=== PATIENT | male | born 1970 | race Caucasian/White ===

== ENCOUNTER 2019-10-17 13:22 | Emergency (ER) | payer BC ==
[~2019-10-17] VITALS: Ht 172.7 cm; Wt 72.7 kg
[2019-10-17] MEDS ORDERED: IV NORMAL SALINE 1,000ML 1,000 ML IV ONE (13:45)
--- NOTE | 2019-10-17 13:46 | PHYS DOC ---
General Adult EDM: Chief Complaint: DIZZY/LIGHT HEADED HPI: HPI: 49-year-old male significant history of hypertension, who presents for evaluation of dizziness of onset at around 9 AM this morning. Symptoms worsened around noon today, associated with diaphoresis and feeling generally unwell. No headache, vision changes, chest pain, dyspnea, palpitations, abdominal pain. Does endorse mild nausea, though now improved. Review of Systems: Review of Systems: Gen: No fever, chills. Reports diaphoresis. Eyes: No blurred vision, diplopia. ENT: No nasal congestion, sore throat. CV: No CP, palpitations. Resp. No SOB, cough. GI: No abd pain, vomiting. Reports nausea. : No dysuria, hematuria. Neuro: No ROCK, weakness. Reports lightheadedness. MSK: No myalgia, arthralgia, back pain. Skin: No acute rash or lesion. Heart Score: Risk Factors: Risk Factors: DM, Current or recent (<one month) smoker, HTN, HLP, family history of CAD, obesity. Risk Scores: Score 0 - 3: 2.5% MACE over next 6 weeks - Discharge Home Score 4 - 6: 20.3% MACE over next 6 weeks - Admit for Clinical Observation Score 7 - 10: 72.7% MACE over next 6 weeks - Early Invasive Strategies Physical Exam: PE: Gen: NAD. Well nourished. Head: NC/AT. Eyes: No scleral icterus. No conjunctival injection. PERRL. No inducible nystagmus. ENT: MMM. Posterior OP clear. Neck: Supple. NT. No JVD. CV: RRR. Peripheral pulses intact. Resp: CTAB. Abd: Soft. NT. ND. MSK: No peripheral cyanosis. No edema. Neuro: A&Ox3. Strength & sensation grossly intact throughout. No dysmetria. No aphasia or dysarthria. No facial asymmetry. No visual field cut. NIH stroke score 0. Skin. Warm. Dry. Psych: Appropriate mood & affect. EKG: EKG: EKG at 1347. Sinus rhythm. Heart rate 92. Normal intervals. No STEMI. Interpreted by me. Radiology/Procedures: Radiology/Procedures: EXAM: CHEST AP ONLY INDICATION: Reason: Dizziness / Spl. Instructions: / History: . TECHNIQUE: Single view COMPARISON: None FINDINGS: The heart size is normal. The great vessels appear unremarkable. There is no hilar or mediastinal mass. Lungs are hypoventilatory but show no focal infiltrates. Bilateral diaphragmatic elevation is present. There is no pleural effusion or pneumothorax. There are no significant osseous abnormalities. IMPRESSION: Hypoventilatory chest showing no active cardiopulmonary disease. Electronically signed by: Doretha Rg MD (10/17/2019 2:11 PM) [place] EXAM: 1. CTA HEAD WITH AND WITHOUT CONTRAST. 2. CTA NECK WITH AND WITHOUT CONTRAST. HISTORY: Dizziness, vertigo. TECHNIQUE: Computed tomographic angiography of the head and neck was performed before and after the intravenous administration of iodinated contrast. Three-dimensional reconstructions were also performed. One or more of the following individualized dose reduction techniques were utilized for this examination: 1. Automated exposure control. 2. Adjustment of the mA and/or kV according to patient size. 3. Use of iterative reconstruction technique. COMPARISON: Today's head CT. FINDINGS: Angiographic findings: There is a common origin of the left common carotid and brachiocephalic arteries, a variant of normal. There is no arch vessel stenosis. Both common carotid arteries are patent without stenosis. Both internal carotid arteries are patent without stenosis. The external carotid systems are patent. There are circumferential atherosclerotic calcifications along the distal vertebral arteries at the foramen magnum bilaterally. These result in only mild luminal narrowing. Both contribute to the basilar. There are limitations from venous contamination. The basilar artery is patent. Both posterior cerebral arteries are patent. The posterior communicating arteries are visualized. There are minimal atherosclerotic calcifications along the cavernous internal carotid arteries without significant stenosis. The middle cerebral arteries are patent. The anterior cerebral arteries are patent. The anterior communicating artery is visualized. Nonangiographic findings: There is no intracranial hemorrhage. Colon-white differentiation is preserved. The ventricles are normal in size and position. There is a small mucus retention cyst in the left maxillary sinus. The orbits are unremarkable. The temporal bones are unremarkable. Bone windows reveal no suspicious lesions. The lung apices demonstrate no acute abnormality. The parotid glands and submandibular glands are unremarkable. The thyroid gland demonstrates no suspicious lesions. There are no laryngeal or pharyngeal masses. There are no pathologically enlarged lymph nodes. IMPRESSION: 1. Moderate atherosclerotic calcifications along the distal vertebral arteries resulting in only mild luminal narrowing. 2. No hemodynamically significant carotid or intracranial stenosis. PQRS Compliance Statement - Stenosis calculations for CT, MR and conventional angiography are based upon measurement of the distal ICA diameter in accordance with the NASCET methodology. Stenosis calculations for carotid ultrasound studies are derived from validated velocity criteria which are known to correlate with the NASCET methodology. Electronically signed by: William Marquez MD (10/17/2019 3:23 PM) [id number] Course & Med Decision Making: Course & Med Decision Making Pertinent Labs and Imaging studies reviewed. (See chart for details) In summary, 49M p/w vertigo and diaphoresis that began this morning. HDS. No focal neuro deficits. No inducible nystagmus. NIHSS zero. EKG without acute injury pattern. Labs unremarkable including negative initial troponin. CXR c lear. CTAH/CTAN and delta troponin pending. Given IVF and meclizine. 1544: CTAH/CTAN neg for acute occlusion or dissection, specifically of the verts. Delta trop neg. Dizziness improved. HINTS exam reassuring. Will DC home with Rx meclizine. Outpatient PMD F/U. Return precautions given. Eliana Disclaimer: Eliana Disclaimer: This electronic medical record was generated, in whole or in part, using a voice recognition dictation system. Departure Departure: Impression: Primary Impression: Dizziness Disposition: 01 HOME/RESIDENCE PRIOR TO ADM Condition: STABLE Referrals: LAKEISHA WALSH (PCP) Patient Instructions: Dizziness, [id number] Scripts Meclizine Hcl (MECLIZINE HCL) 25 Mg Tablet 1 TAB PO PRN TID for Dizziness, #20 TAB Prov: MIGUELINA SUMMERS DO 10/17/19 Justification of Admission: Justification of Admission: Justification of Admission Dx: N/A MIGUELINA SUMMERS DO Oct 17, 2019 13:46
[2019-10-17 13:53] VITALS: BP 131/93
[2019-10-17 14:00] LABS: BASO # 0.1 x10^3/uL (0.0-0.2); BASO % 1 % (0-3); EOS # 0.1 x10^3/uL (0.0-0.7); EOS % 1 % (0-3); HEMATOCRIT 44.4 % (39.0-53.0); HEMOGLOBIN 14.6 g/dL (13.0-17.5); LYMPH # 2.9 x10^3/uL (1.0-4.8); LYMPH % 33 % (24-48); MEAN CORPUSCULAR HEMOGLOBIN 28 pg (25-35); MEAN CORPUSCULAR HGB CONC 33 g/dL (31-37); MEAN CORPUSCULAR VOLUME 85 fL (79-100); MONO # 0.5 x10^3/uL (0.0-1.1); MONO % 5 % (0-9); NEUT # 5.3 x10^3uL (1.8-7.7); NEUT % 60 % (31-73); PLATELET COUNT 262 x10^3/uL (140-400); RED BLOOD COUNT 5.19 x10^6/uL (4.30-5.70); RED CELL DISTRIBUTION WIDTH 14.2 % (11.5-14.5); WHITE BLOOD COUNT 8.8 x10^3/uL (4.0-11.0)
[2019-10-17 14:07] LABS: CALCIUM 10.4 mg/dL (8.5-10.1); CREATININE 1.2 mg/dL (0.7-1.3); GFR 63.8; POTASSIUM 3.9 mmol/L (3.5-5.1)
--- NOTE | 2019-10-17 14:08 | EKG ---
[address] [address] Test Date: 2019-10-17 Test Time: 13:47:39 Pat Name: AKI BOGGS Department: Room: Gender: M [employer] Founder: : 1970 Requested By: MIGUELINA SUMMERS Order Number: [id number] Reading MD: Measurements Intervals [place] Rate: 92 P: 32 OR: 146 QRS: 26 QRSD: 82 T: 52 QT: 318 QTc: 398 Interpretive Statements SINUS RHYTHM NORMAL ECG RI6.02 No previous ECG available for comparison
[2019-10-17 14:13] LABS: ALBUMIN 4.5 g/dL (3.4-5.0); ALBUMIN/GLOBULIN RATIO 1.3 (1.0-1.7); MAGNESIUM 2.1 mg/dL (1.8-2.4); TOTAL BILIRUBIN 0.2 mg/dL (0.2-1.0); TOTAL PROTEIN 7.9 g/dL (6.4-8.2)
--- NOTE | 2019-10-17 14:15 | RAD ---
EXAM: CHEST AP ONLY INDICATION: Reason: Dizziness / Spl. Instructions: / History: . TECHNIQUE: Single view COMPARISON: None FINDINGS: The heart size is normal. The great vessels appear unremarkable. There is no hilar or mediastinal mass. Lungs are hypoventilatory but show no focal infiltrates. Bilateral diaphragmatic elevation is present. There is no pleural effusion or pneumothorax. There are no significant osseous abnormalities. IMPRESSION: Hypoventilatory chest showing no active cardiopulmonary disease. Electronically signed by: Doretha Rg MD (10/17/2019 2:11 PM) [facility] – [place], [place]
[2019-10-17] MEDS ORDERED: IOHEXOL 350 MG/ML 100 ML VIAL. IV ONE (14:30)
[2019-10-17] MEDS ORDERED: MECLIZINE 12.5 MG TABLET. PO ONE (14:30)
--- NOTE | 2019-10-17 14:58 | RAD ---
EXAM: CT HEAD WITHOUT CONTRAST. HISTORY: Dizziness. TECHNIQUE: Computed tomography of the head was performed without intravenous contrast. One or more of the following individualized dose reduction techniques were utilized for this examination: 1. Automated exposure control. 2. Adjustment of the mA and/or kV according to patient size. 3. Use of iterative reconstruction technique. COMPARISON: None. FINDINGS: There is no intracranial hemorrhage. Colon-white differentiation is preserved. The ventricles are normal in size and position. The visualized paranasal sinuses appear clear. The orbits are unremarkable. The temporal bones are unremarkable. The calvarium reveals no suspicious lesions. There are atherosclerotic calcifications of the internal carotid and vertebral arteries. IMPRESSION: 1. No acute intracranial findings. MRI is more sensitive for acute ischemia if there is persistent concern. Electronically signed by: William Marquez MD (10/17/2019 2:55 PM) [id number]
--- NOTE | 2019-10-17 15:26 | RAD ---
EXAM: 1. CTA HEAD WITH AND WITHOUT CONTRAST. 2. CTA NECK WITH AND WITHOUT CONTRAST. HISTORY: Dizziness, vertigo. TECHNIQUE: Computed tomographic angiography of the head and neck was performed before and after the intravenous administration of iodinated contrast. Three-dimensional reconstructions were also performed. One or more of the following individualized dose reduction techniques were utilized for this examination: 1. Automated exposure control. 2. Adjustment of the mA and/or kV according to patient size. 3. Use of iterative reconstruction technique. COMPARISON: Today's head CT. FINDINGS: Angiographic findings: There is a common origin of the left common carotid and brachiocephalic arteries, a variant of normal. There is no arch vessel stenosis. Both common carotid arteries are patent without stenosis. Both internal carotid arteries are patent without stenosis. The external carotid systems are patent. There are circumferential atherosclerotic calcifications along the distal vertebral arteries at the foramen magnum bilaterally. These result in only mild luminal narrowing. Both contribute to the basilar. There are limitations from venous contamination. The basilar artery is patent. Both posterior cerebral arteries are patent. The posterior communicating arteries are visualized. There are minimal atherosclerotic calcifications along the cavernous internal carotid arteries without significant stenosis. The middle cerebral arteries are patent. The anterior cerebral arteries are patent. The anterior communicating artery is visualized. Nonangiographic findings: There is no intracranial hemorrhage. Colon-white differentiation is preserved. The ventricles are normal in size and position. There is a small mucus retention cyst in the left maxillary sinus. The orbits are unremarkable. The temporal bones are unremarkable. Bone windows reveal no suspicious lesions. The lung apices demonstrate no acute abnormality. The parotid glands and submandibular glands are unremarkable. The thyroid gland demonstrates no suspicious lesions. There are no laryngeal or pharyngeal masses. There are no pathologically enlarged lymph nodes. IMPRESSION: 1. Moderate atherosclerotic calcifications along the distal vertebral arteries resulting in only mild luminal narrowing. 2. No hemodynamically significant carotid or intracranial stenosis. PQRS Compliance Statement - Stenosis calculations for CT, MR and conventional angiography are based upon measurement of the distal ICA diameter in accordance with the NASCET methodology. Stenosis calculations for carotid ultrasound studies are derived from validated velocity criteria which are known to correlate with the NASCET methodology. Electronically signed by: William Marquez MD (10/17/2019 3:23 PM) [id number]
[2019-10-17] MEDS ORDERED: MECL-75 PO (15:46)
== END 2019-10-17 16:00 | disposition home or self-care (01) ==
LOC: ER 13:22
DX: R42 Dizziness and giddiness (principal); R61 Generalized hyperhidrosis; R11.0 Nausea
CPT/HCPCS: 36415; 70450; 70496; 70498; 71045; 80053; 83735; 84484; 85025; 93005; 96360; 99285; J7030; J8597; Q9967